=== PATIENT | male | born 1930 | race Caucasian/White ===

== ENCOUNTER 2016-11-23 08:57 | Day surgery (SDC) | payer MEDICARE, OTHER ==
--- NOTE | ~2016-11-23 | EGD ---
EGD REPORT [facility] [address] [address] NAME: IAIN HENSON : [birth year] STATUS : REG [facility]#: [id number] AGE: 86 ADM/REG DATE : 11/23/16 MR#: [id number] REPORT SERV DATE: 11/23/16 DICTATED BY: EMORY STEPHENS DATE: 11/23/16 REPORT STATUS : Draft TRANSCRIBED BY: [employer] DATE: 11/23/16 [facility] Center Patient Name: Iain Henson Date of : 1930 Attending MD: EMORY STEPHENS MD Procedure Date No Time: 11/23/2016 Procedure: Upper GI endoscopy Indications: Dysphagia Referring MD: KRISTEN PACK Medicines: Propofol per Anesthesia Complications: No immediate complications. Procedure: Pre-Anesthesia Assessment: - ASA Grade Assessment: III - A patient with severe systemic disease. After obtaining informed consent, the endoscope was passed under direct vision. Throughout the procedure, the patient's blood pressure, pulse, and oxygen saturations were monitored continuously. The GIF [id number] was introduced through the mouth, and advanced to the second part of duodenum. The upper GI endoscopy was accomplished without difficulty. The patient tolerated the procedure well. The upper GI endoscopy was accomplished without difficulty. The patient tolerated the procedure well. Findings: A medium-sized hiatus hernia was present. A benign-appearing, intrinsic mild stenosis was found and was traversed. A guidewire was placed and the scope was withdrawn. Dilation was performed with a Savary dilator with no resistance at 54 Fr. A guidewire was placed and the scope was withdrawn. Dilation was performed with a Savary dilator with no resistance at 54 Fr. Diffuse mild inflammation characterized by erosions and erythema was found in the stomach. The examined duodenum was normal. Impression: - Hiatus hernia. - Benign-appearing esophageal stricture. Dilated. - Chronic gastritis. - Normal examined duodenum. Recommendation: - Discharge patient to home (ambulatory). Prilosec 40 mg po qd. - Return to nurse practitioner in 3 weeks. EGD REPORT [address] [address] NAME: IAIN HENSON : [birth year] STATUS : REG [facility] [place] PAT#: [id number] AGE: 86 ADM/REG DATE : 11/23/16 MR#: [id number] REPORT SERV DATE: 11/23/16 DICTATED BY: EMORY STEPHENS. DATE: 11/23/16 REPORT STATUS : Draft TRANSCRIBED BY: [employer] DATE: 11/23/16 Procedure Code(s): --- Professional --- 06074, Esophagogastroduodenoscopy, flexible, transoral; with insertion of guide wire followed by passage of dilator(s) through esophagus over guide wire Diagnosis Code(s): --- Professional --- K44.9, Diaphragmatic hernia without obstruction or gangrene K22.2, Esophageal obstruction K29.50, Unspecified chronic gastritis without bleeding R13.10, Dysphagia, unspecified CPT copyright 2013 [employer]. All rights reserved. The codes documented in this report are preliminary and upon skimmer scoop operator review may be revised to meet current compliance requirements. Emory Stephens MD EMORY STEPHENS MD 11/23/2016 10:26 AM This report has been signed electronically. Number of Addenda: 0 Note Initiated On: 11/23/2016 10:11 AM Scope Withdrawal Time 0 hours 0 minutes 0 seconds [address] [place] [address]
[~2016-11-23 08:57] MED LIST: APRES10B PO; ASABAYER PO; ATEN25 PO; CELEXA20 PO; COMBIVENT INH; COMBIVENT RESPIM4 GM INH; FLOMAX4 PO; LIPITOR10 PO; NIASPAN500 PO; PLAVIX PO; PRAVAC PO; PRAVACHOL40 MG PO; PROVHFA INH; X25 PO; XALAT OPH
== END 2016-11-23 23:59 | disposition home health service (06) ==
LOC: DMU 08:57
PROVIDERS: Internal Medicine Gastroenterology
PROC: 0D758ZZ Dilation of Esophagus, Via Natural or Artificial Opening Endoscopic (ICD-10-PCS; principal; 2016-11-23 11:00)
DX: K22.2 Esophageal obstruction (principal); K44.9 Diaphragmatic hernia without obstruction or gangrene; K29.50 Unspecified chronic gastritis without bleeding; I25.10 Atherosclerotic heart disease of native coronary artery without angina pectoris; I73.9 Peripheral vascular disease, unspecified; I10 Essential (primary) hypertension; E78.5 Hyperlipidemia, unspecified; M19.90 Unspecified osteoarthritis, unspecified site; J44.9 Chronic obstructive pulmonary disease, unspecified; E78.00 Pure hypercholesterolemia, unspecified; Z85.51 Personal history of malignant neoplasm of bladder; Z79.899 Other long term (current) drug therapy; Z95.1 Presence of aortocoronary bypass graft; Z98.890 Other specified postprocedural states; Z87.891 Personal history of nicotine dependence; Z90.49 Acquired absence of other specified parts of digestive tract